=== PATIENT | female | born 1955 | race Caucasian/White ===

== ENCOUNTER → 2016-11-10 | Outpatient (CLI) | payer OTHER ==
[2016-11-10 12:50] LABS: MEAN CORPUSCULAR HEMOGLOBIN 30.8 pg (27.0-33.0); MEAN CORPUSCULAR HGB CONC 33.8 g/dl (32.0-36.5); MEAN CORPUSCULAR VOLUME 90.9 fl (80.0-96.0); RED CELL DISTRIBUTION WIDTH 14.4 % (11.5-14.5); WHITE BLOOD COUNT 6.2 K/mm3 (4.0-10.0)
--- NOTE | 2016-11-10 13:23 | REP ---
Chest x-ray: Two views. History: Shortness of breath. Findings: There is a large hiatal hernia behind the heart. The heart is mildly enlarged as well. Pulmonary vasculature is cephalized. Pleural angles are sharp. No infiltrate is seen. No bony abnormality is noted. Impression: Mild cardiomegaly. Large hiatal hernia. Pulmonary vascular cephalization. No pleural effusion or pulmonary edema seen. Signed by David York MD 11/10/2016 02:04 P
[2016-11-10 13:59] LABS: ALBUMIN 3.8 GM/DL (3.2-5.2); ALBUMIN/GLOBULIN RATIO 1.09 (1.00-1.93); BILIRUBIN,TOTAL 0.4 MG/DL (0.2-1.0); CALCIUM LEVEL 8.5 MG/DL (8.5-10.1); CREATININE FOR GFR 1.07 MG/DL (0.55-1.02); GLOMERULAR FILTRATION RATE 55.9 (>51); POTASSIUM SERUM 4.1 MEQ/L (3.5-5.1); TOTAL PROTEIN 7.3 GM/DL (6.4-8.2)
== END ==
LOC: M LAB 11:52
PROVIDERS: ATTEND Family Medicine
DX: E03.8 Other specified hypothyroidism (principal); R06.02 Shortness of breath

== ENCOUNTER → 2016-12-22 | Outpatient (CLI) | payer OTHER ==
[2016-12-22 11:32] LABS: ALBUMIN 3.6 GM/DL (3.2-5.2); ALBUMIN/GLOBULIN RATIO 1.06 (1.00-1.93); ALKALINE PHOSPHATASE 75 U/L (45-117); ALT/SGPT 40 U/L (12-78); AST/SGOT 25 U/L (15-37); BILIRUBIN,DIRECT 0.1 MG/DL (0.0-0.2); BILIRUBIN,TOTAL 0.4 MG/DL (0.2-1.0); CHOLESTEROL LEVEL 162 MG/DL (<200); TRIGLYCERIDES LEVEL 143 MG/DL (<150)
== END ==
LOC: M LAB 09:44
PROVIDERS: ATTEND Family Medicine
DX: E78.2 Mixed hyperlipidemia (principal)

== ENCOUNTER → 2017-02-01 | Outpatient (CLI) | payer OTHER | LOC: M LAB 11:21 | PROVIDERS: ATTEND Family Medicine | DX: E03.8 Other specified hypothyroidism (principal) ==

== ENCOUNTER → 2017-09-06 | Outpatient (CLI) | payer OTHER ==
[2017-09-06 10:42] LABS: ANION GAP 5 MEQ/L (8-16); BLOOD UREA NITROGEN 10 MG/DL (7-18); CARBON DIOXIDE LEVEL 28 MEQ/L (21-32); CHLORIDE LEVEL 110 MEQ/L (98-107); CREATININE FOR GFR 0.64 MG/DL (0.55-1.30); FREE T4 1.38 NG/DL (0.76-1.46); GLOMERULAR FILTRATION RATE > 60.0 (>45); GLUCOSE, FASTING 100 MG/DL (70-100); POTASSIUM SERUM 4.3 MEQ/L (3.5-5.1); SODIUM LEVEL 143 MEQ/L (136-145); THYROID STIMULATING HORMONE 0.298 uIU/ML (0.358-3.740)
[2017-09-06 15:57] LABS: ALBUMIN 3.4 GM/DL (3.2-5.2)
[2017-09-06 19:21] LABS: PTH INTACT 94.1 PG/ML (18.5-88.0)
[2017-09-06 19:24] LABS: TOTAL 25(OH) VITAMIN D 4.5 NG/ML (30.0-100.0)
[2017-09-07 08:22] LABS: HERPES ZOSTER, VARICELLA IgG <135 index (Immune >165)
== END ==
LOC: M LAB 09:51
DX: Z01.84 Encounter for antibody response examination (principal); E03.8 Other specified hypothyroidism; E83.51 Hypocalcemia; I10 Essential (primary) hypertension
CPT/HCPCS: 82040

== ENCOUNTER → 2017-10-23 | Outpatient (CLI) | payer OTHER ==
[2017-10-23 12:44] LABS: CALCIUM LEVEL 9.1 MG/DL (8.8-10.2)
[2017-10-23 12:47] LABS: TOTAL 25(OH) VITAMIN D 19.1 NG/ML (30.0-100.0)
== END ==
LOC: M LAB 11:53
DX: E55.9 Vitamin D deficiency, unspecified (principal)
CPT/HCPCS: 82310

== ENCOUNTER → 2018-04-02 | Outpatient (CLI) | payer OTHER ==
[2018-04-02 12:55] LABS: CALCIUM LEVEL 9.3 MG/DL (8.8-10.2)
[2018-04-02 13:12] LABS: TOTAL 25(OH) VITAMIN D 48.8 NG/ML (30.0-100.0)
== END ==
LOC: M LAB 11:28
PROVIDERS: ATTEND Family Medicine
DX: E55.9 Vitamin D deficiency, unspecified (principal)

== ENCOUNTER → 2018-04-18 | Outpatient (CLI) | payer OTHER ==
[2018-04-18 12:51] LABS: HEMATOCRIT 45.2 % (36.0-47.0); MEAN CORPUSCULAR HEMOGLOBIN 30.2 pg (27.0-33.0); MEAN CORPUSCULAR HGB CONC 33.2 g/dl (32.0-36.5); MEAN CORPUSCULAR VOLUME 91.1 fl (80.0-96.0); PLATELET COUNT, AUTOMATED 273 10^3/uL (150-450); RED BLOOD COUNT 4.96 10^6/uL (4.00-5.40); WHITE BLOOD COUNT 13.5 10^3/uL (4.0-10.0)
[2018-04-18 13:20] LABS: ALBUMIN 3.6 GM/DL (3.2-5.2); ALT/SGPT 28 U/L (12-78); BILIRUBIN,TOTAL 0.6 MG/DL (0.2-1.0); BLOOD UREA NITROGEN 15 MG/DL (7-18); CALCIUM LEVEL 8.6 MG/DL (8.8-10.2); CARBON DIOXIDE LEVEL 29 MEQ/L (21-32); CHLORIDE LEVEL 101 MEQ/L (98-107); CHOLESTEROL LEVEL 131 MG/DL (<200); CHOLESTEROL RISK RATIO 2.673 (<5); CPK CREATINE PHOSPHOKINASE 140 U/L (26-192); CREATININE FOR GFR 0.84 MG/DL (0.55-1.30); GLOMERULAR FILTRATION RATE > 60.0 (>45); GLUCOSE, FASTING 97 MG/DL (70-100); HDL CHOLESTEROL 49 MG/DL (>40); LDL CHOLESTEROL 59 MG/DL (<100); NON-HDL-C 82 MG/DL; POTASSIUM SERUM 3.5 MEQ/L (3.5-5.1); SODIUM LEVEL 138 MEQ/L (136-145); TOTAL PROTEIN 6.9 GM/DL (6.4-8.2); TRIGLYCERIDES LEVEL 113 MG/DL (<150)
[2018-04-18 13:21] LABS: TOTAL 25(OH) VITAMIN D 38.6 NG/ML (30.0-100.0)
== END ==
LOC: M LAB 12:20
PROVIDERS: ATTEND Family Medicine
DX: Z12.11 Encounter for screening for malignant neoplasm of colon (principal); I10 Essential (primary) hypertension; E78.2 Mixed hyperlipidemia; E55.9 Vitamin D deficiency, unspecified

== ENCOUNTER → 2019-04-03 | Outpatient (CLI) | payer OTHER ==
[2019-04-03 11:18] LABS: HEMATOCRIT 44.1 % (36.0-47.0); HEMOGLOBIN 14.3 g/dl (12.0-15.5); MEAN CORPUSCULAR HGB CONC 32.4 g/dl (32.0-36.5); MEAN CORPUSCULAR VOLUME 92.5 fl (80.0-96.0); PLATELET COUNT, AUTOMATED 272 10^3/uL (150-450); RED BLOOD COUNT 4.77 10^6/uL (4.00-5.40); WHITE BLOOD COUNT 8.7 10^3/uL (4.0-10.0)
[2019-04-03 11:52] LABS: ALBUMIN 3.5 GM/DL (3.2-5.2); ALT/SGPT 32 U/L (12-78); BILIRUBIN,TOTAL 0.5 MG/DL (0.2-1.0); BLOOD UREA NITROGEN 23 MG/DL (7-18); CALCIUM LEVEL 8.8 MG/DL (8.8-10.2); CARBON DIOXIDE LEVEL 30 MEQ/L (21-32); CHLORIDE LEVEL 102 MEQ/L (98-107); CHOLESTEROL LEVEL 147 MG/DL (<200); CPK CREATINE PHOSPHOKINASE 144 U/L (26-192); CREATININE FOR GFR 0.88 MG/DL (0.55-1.30); GLOMERULAR FILTRATION RATE > 60.0 (>45); GLUCOSE, FASTING 95 MG/DL (70-100); HDL CHOLESTEROL 42 MG/DL (>40); LDL CHOLESTEROL 86 MG/DL (<100); NON-HDL-C 105 MG/DL; POTASSIUM SERUM 3.3 MEQ/L (3.5-5.1); SODIUM LEVEL 139 MEQ/L (136-145); TOTAL PROTEIN 6.8 GM/DL (6.4-8.2); TRIGLYCERIDES LEVEL 97 MG/DL (<150)
[2019-04-03 11:53] LABS: TOTAL 25(OH) VITAMIN D 45.5 NG/ML (30.0-100.0)
== END ==
LOC: M LAB 10:45
PROVIDERS: ATTEND Family Medicine
DX: I10 Essential (primary) hypertension (principal); E78.2 Mixed hyperlipidemia; E55.9 Vitamin D deficiency, unspecified; E03.8 Other specified hypothyroidism

== ENCOUNTER → 2019-06-10 | Outpatient (CLI) | payer OTHER ==
[2019-06-10 10:27] LABS: BLOOD UREA NITROGEN 23 MG/DL (7-18); CALCIUM LEVEL 8.7 MG/DL (8.8-10.2); CARBON DIOXIDE LEVEL 31 MEQ/L (21-32); CHLORIDE LEVEL 103 MEQ/L (98-107); CREATININE FOR GFR 0.96 MG/DL (0.55-1.30); GLOMERULAR FILTRATION RATE > 60.0 (>45); GLUCOSE, FASTING 100 MG/DL (70-100); POTASSIUM SERUM 3.2 MEQ/L (3.5-5.1); SODIUM LEVEL 141 MEQ/L (136-145)
== END ==
LOC: M LAB 09:15
PROVIDERS: ATTEND Family Medicine
DX: E87.6 Hypokalemia (principal)

== ENCOUNTER 2019-11-08 10:46 | Inpatient (IN) | payer OTHER ==
[~2019-11-08] VITALS: Ht 167.6 cm; Wt 101.6 kg
[2019-11-08] MEDS ORDERED: NS 1,000 ML IV ONE ×3 (11:15→14:15)
[2019-11-08] MEDS ORDERED: PANTOPRAZOLE 40MG VIAL (C9113 PER 1) IV ONE (11:15)
[2019-11-08] MEDS ORDERED: METOCLOPRAMIDE INJ 10MG/2ML VIAL (J2765 PER 1) IV ONE (11:15)
--- NOTE | 2019-11-08 12:03 | REPVR ---
PROCEDURE INFORMATION: Exam: XR Chest, 1 View Exam date and time: 11/08/2019 11:39 AM Age: 64 years old Clinical indication: Pain; Other: Abdominal; Additional info: Cp/abd pain TECHNIQUE: Imaging protocol: XR of the chest Views: 1 view. COMPARISON: CR Chest, 2 view PA, Lat 11/10/2016 12:15 PM FINDINGS: Lungs: There is left base atelectasis. Pleural space: Unremarkable. No pleural effusion. No pneumothorax. Heart/Mediastinum: The heart is slightly enlarged. Bones/joints: Unremarkable. Soft tissues: There is enlargement of the paraesophageal hernia extending into left lower chest. IMPRESSION: Increase in size what appears to be a paraesophageal hernia. There is associated atelectasis . Electronically signed by: Karlos Hamilton On 11/08/2019 12:04:11 PM
[2019-11-08 12:06] LABS: BASO % 0.1 % (0.0-1.0); HEMATOCRIT 50.4 % (36.0-47.0); HEMOGLOBIN 17.6 g/dl (12.0-15.5); LYMPH % 9.5 % (24.0-44.0); MEAN CORPUSCULAR HEMOGLOBIN 30.1 pg (27.0-33.0); MEAN CORPUSCULAR HGB CONC 34.9 g/dl (32.0-36.5); MEAN CORPUSCULAR VOLUME 86.3 fl (80.0-96.0); MONO # 1.3 10^3/uL (0.0-0.8); MONO % 6.3 % (0.0-5.0); NEUTROPHILS # 17.2 10^3/uL (1.5-8.5); NEUTROPHILS % 83.6 % (36.0-66.0); PLATELET COUNT, AUTOMATED 392 10^3/uL (150-450); RED BLOOD COUNT 5.84 10^6/uL (4.00-5.40); WHITE BLOOD COUNT 20.5 10^3/uL (4.0-10.0)
[2019-11-08 12:15] LABS: INR 0.91; PROTHROMBIN TIME 12.4 SECONDS (11.8-14.0)
[2019-11-08 12:37] LABS: ALBUMIN 4.4 GM/DL (3.2-5.2); BILIRUBIN,DIRECT 0.3 MG/DL (0.0-0.2); CK-MB VALUE MASS 2.2 NG/ML (<3.6); MB/CK RELATIVE INDEX 0.58 (< OR =4); TOTAL PROTEIN 8.5 GM/DL (6.4-8.2); TROPONIN I 0.06 NG/ML (< 0.10)
[2019-11-08 14:18] LABS: CALCIUM LEVEL 10.5 MG/DL (8.8-10.2); CREATININE FOR GFR 1.69 MG/DL (0.55-1.30); GLOMERULAR FILTRATION RATE 32.6 (>45); POTASSIUM SERUM 2.8 MEQ/L (3.5-5.1)
[2019-11-08] MEDS ORDERED: KCL 10MEQ/100ML SWI (KRUN) 10 MEQ in IV 1 EA IV ONE (14:30)
--- NOTE | 2019-11-08 15:04 | REPVR ---
PROCEDURE INFORMATION: Exam: CT Chest Without Contrast Exam date and time: 11/08/2019 2:26 PM Age: 64 years old Clinical indication: Pain; Other: Epigastric; Additional info: Abd pain TECHNIQUE: Imaging protocol: Computed tomography of the chest without contrast. Radiation optimization: All CT scans at this facility use at least one of these dose optimization techniques: automated exposure control; mA and/or kV adjustment per patient size (includes targeted exams where dose is matched to clinical indication); or iterative reconstruction. COMPARISON: CR Chest, 1 view 11/08/2019 11:37 AM FINDINGS: Lungs: Unremarkable. No consolidation. No masses. Pleural space: There is biapical pleural thickening. Heart: There is severe calcifications mitral valve. Mediastinal space: There is a fluid-filled esophagus with a large paraesophageal hernia. Fluid-filled esophagus could to reflux. There may be wall thickening in the mid esophagus specifically on images 201/12 through 26. Aorta: Unremarkable. No aortic aneurysm. Lymph nodes: Unremarkable. No enlarged lymph nodes. Bones/joints: Unremarkable. No acute fracture. Soft tissues: Unremarkable. Other findings: The abdomen discussed in separate dictation. There are diffuse vascular calcifications. IMPRESSION: 1. Large paraesophageal hernia. 2. Possible mid esophageal wall thickening. 3. Bibasilar atelectasis. Electronically signed by: Karlos Hamilton On 11/08/2019 15:04:53 PM
--- NOTE | 2019-11-08 15:06 | REPVR ---
PROCEDURE INFORMATION: Exam: CT Abdomen And Pelvis Without Contrast Exam date and time: 11/08/2019 2:26 PM Age: 64 years old Clinical indication: Abdominal pain; Epigastric; Additional info: Abd pain TECHNIQUE: Imaging protocol: Computed tomography of the abdomen and pelvis without contrast. Radiation optimization: All CT scans at this facility use at least one of these dose optimization techniques: automated exposure control; mA and/or kV adjustment per patient size (includes targeted exams where dose is matched to clinical indication); or iterative reconstruction. COMPARISON: No relevant prior studies available. FINDINGS: Mediastinal space: Paraesophageal hernia was discussed on the chest CT. Liver: Liver is very fatty enlarged 191 mm. There are areas of focal fatty sparing throughout the periphery of the liver. Gallbladder and bile ducts: Normal. No calcified stones. No ductal dilation. Pancreas: Normal. No ductal dilation. Spleen: Normal. No splenomegaly. Adrenals: Normal. No mass. Kidneys and ureters: Normal. No hydronephrosis. Stomach and bowel: There are few scattered colonic diverticula without evidence of acute diverticulitis. Small amount oral contrast is noted in small bowel loops versus sequelae of ingested medicines. Appendix: The appendix is unremarkable in is seen. Intraperitoneal space: Unremarkable. No free air. No significant fluid collection. Vasculature: Unremarkable. No abdominal aortic aneurysm. Lymph nodes: Unremarkable. No enlarged lymph nodes. Bladder: Unremarkable as visualized. Reproductive: Unremarkable as visualized. Bones/joints: Unremarkable. No acute fracture. Soft tissues: Unremarkable. Other findings: The chest was discussed on a separate dictation. IMPRESSION: No acute abnormality. Large fatty liver. Electronically signed by: Karlos Hamilton On 11/08/2019 15:07:20 PM
[2019-11-08] MEDS ORDERED: SIMV40TA20 PO (15:25)
[2019-11-08] MEDS ORDERED: ALBU8.5H PO (15:25)
[2019-11-08] MEDS ORDERED: POTA20TA6 PO (15:25)
[2019-11-08] MEDS ORDERED: VITA50005 PO (15:25)
[2019-11-08] MEDS ORDERED: EUTH100T PO (15:25)
[2019-11-08] MEDS ORDERED: FLUO20CA22 PO (15:25)
[2019-11-08] MEDS ORDERED: ONDA-83 PO (15:25)
[2019-11-08] MEDS ORDERED: OMEP-218 PO (15:25)
[2019-11-08] MEDS ORDERED: METO1TAB7 PO (15:25)
[2019-11-08] MEDS ORDERED: CHLO125TA PO (15:25)
[2019-11-08] MEDS ORDERED: GASTROGRAFIN SOLUTION 30ML (Q9963) As Ordered ONE (16:01)
[2019-11-08] MEDS ORDERED: PIPERACILLIN/TAZOBACTAM SOD 3.375 GM in D5W MINI-BAG PLUS 50 ML IV SCH (18:00)
[2019-11-08] MEDS ORDERED: BUPIVACAINE HCL 0.25% 30ML VIAL As Ordered ONE ×2 (19:33→20:10)
[2019-11-08] MEDS ORDERED: MIDAZOLAM INJ 2MG/2ML VIAL (J2250 PER 1MG) As Ordered ONE (19:49)
[2019-11-08] MEDS ORDERED: ONDANSETRON 4MG/2ML VIAL As Ordered ONE (19:49)
[2019-11-08] MEDS ORDERED: dexameTHASONE 4 MG/ML 1ML VIAL (J1100 PER 1MG) As Ordered ONE (19:49)
[2019-11-08] MEDS ORDERED: LIDOCAINE 2% 100MG/5ML SDV (FOR ANES.) As Ordered ONE (19:49)
[2019-11-08] MEDS ORDERED: PHENYLephrine HCL 500 MCG/5 ML (100MCG/ML) SYRINGE (J2370) As Ordered ONE ×2 (19:49→19:58)
[2019-11-08] MEDS ORDERED: ROCURONIUM BROMIDE 50 MG/5 ML VIAL As Ordered ONE ×3 (19:49→22:40)
[2019-11-08] MEDS ORDERED: SUCCINYLCHOLINE 100 MG/5 ML SYRINGE (J0330) As Ordered ONE (19:49)
[2019-11-08] MEDS ORDERED: fentaNYL 250 MCG/5 ML INJECTION (J3010) As Ordered ONE (19:49)
[2019-11-08] MEDS ORDERED: ePHEDrine SULFATE 25 MG/5 ML(5MG/ML) SYRINGE As Ordered ONE (19:52)
[2019-11-08] MEDS ORDERED: propofoL 200 MG/20 ML VIAL As Ordered ONE (19:57)
[2019-11-08] MEDS ORDERED: SUGAMMADEX SODIUM 500 MG/5 ML VIAL (BRIDION) As Ordered ONE (20:42)
[2019-11-08] MEDS ORDERED: HYDROmorphone HCL 2 MG/ML 1ML VIAL (J1170) As Ordered ONE (21:52)
[2019-11-08] MEDS ORDERED: ACETAMINOPHEN 1000MG 100ML IV BTL (OFIRMEV) (J0131 PER 10MG) As Ordered ONE (22:01)
[2019-11-09] VITALS (8 sets, daily range): BP systolic 102–140; BP diastolic 54–72
[2019-11-09] MEDS ORDERED: MORPHINE 2 MG/ML 1ML VIAL (J2270) IV PRN (02:15)
[2019-11-09] MEDS ORDERED: ONDANSETRON 4MG/2ML VIAL IV PRN ×2 (02:15→02:30)
[2019-11-09] MEDS ORDERED: PIPERACILLIN/TAZOBACTAM SOD 3.375 GM in D5W MINI-BAG PLUS 50 ML IV ONE (02:15)
[2019-11-09] MEDS ORDERED: fentaNYL 100 MCG/2 ML INJECTION (J3010) IV PRN (02:30)
[2019-11-09] MEDS ORDERED: oxyCODONE 5MG TAB PO PRN (02:30)
[2019-11-09 02:56] LABS: BASO % 0.1 % (0.0-1.0); HEMATOCRIT 38.8 % (36.0-47.0); LYMPH # 1.1 10^3/uL (1.5-5.0); LYMPH % 6.9 % (24.0-44.0); MEAN CORPUSCULAR HGB CONC 33.8 g/dl (32.0-36.5); MEAN CORPUSCULAR VOLUME 91.7 fl (80.0-96.0); MONO # 1.4 10^3/uL (0.0-0.8); MONO % 8.4 % (0.0-5.0); NEUTROPHILS # 13.7 10^3/uL (1.5-8.5); NEUTROPHILS % 84.2 % (36.0-66.0); RED BLOOD COUNT 4.23 10^6/uL (4.00-5.40); WHITE BLOOD COUNT 16.3 10^3/uL (4.0-10.0)
[2019-11-09 03:02] LABS: HEMOGLOBIN 13.1 g/dl (12.0-15.5); PLATELET COUNT, AUTOMATED 221 10^3/uL (150-450)
[2019-11-09 03:30] LABS: CALCIUM LEVEL 7.6 MG/DL (8.8-10.2); CREATININE FOR GFR 1.22 MG/DL (0.55-1.30); GLOMERULAR FILTRATION RATE 47.5 (>45); POTASSIUM SERUM 2.7 MEQ/L (3.5-5.1)
--- NOTE | 2019-11-09 03:31 | REPVR ---
PROCEDURE INFORMATION: Exam: XR Chest, 1 View Exam date and time: 11/09/2019 2:47 AM Age: 64 years old Clinical indication: Screening exam; Other screening; Additional info: S/P surgery TECHNIQUE: Imaging protocol: XR of the chest Views: 1 view. COMPARISON: CT Chest without contrast 2019-11-08 14:23 FINDINGS: Tubes, catheters and devices: Oral gastric tube tip and sidehole are within the stomach. Lungs: Left lung base atelectasis or infiltrate. Pleural space: Unremarkable. No pleural effusion. No pneumothorax. Heart/Mediastinum: Moderate hiatal hernia. Bones/joints: Unremarkable. IMPRESSION: Moderate hiatal hernia. Left lung base atelectasis or infiltrate. Electronically signed by: John Macias On 11/09/2019 03:32:10 AM
[2019-11-09] MEDS: KETOROLAC 30 MG/ML 1ML VIAL IV SCH ×2 (03:54→09:35)
[2019-11-09] MEDS: LR 1,000 ML IV SCH ×2 (03:57→11:28)
[2019-11-09] MEDS: KCL 10MEQ/100ML SWI (KRUN) 10 MEQ in IV 1 EA IV SCH ×4 (04:04→07:15)
[2019-11-09] MEDS: LEVOTHYROXINE 100MCG (0.1MG) VIAL IV SCH (09:34)
[2019-11-09] MEDS: PANTOPRAZOLE 40MG VIAL (C9113 PER 1) IV SCH (09:34)
[2019-11-09 16:07] LABS: HEMATOCRIT 37.1 % (36.0-47.0); HEMOGLOBIN 11.8 g/dl (12.0-15.5); MEAN CORPUSCULAR HEMOGLOBIN 29.8 pg (27.0-33.0); MEAN CORPUSCULAR HGB CONC 31.8 g/dl (32.0-36.5); MEAN CORPUSCULAR VOLUME 93.7 fl (80.0-96.0); PLATELET COUNT, AUTOMATED 179 10^3/uL (150-450); RED BLOOD COUNT 3.96 10^6/uL (4.00-5.40); WHITE BLOOD COUNT 14.5 10^3/uL (4.0-10.0)
[2019-11-09] MEDS: KETOROLAC 30 MG/ML 1ML VIAL IV PRN ×2 (16:12→22:01)
[2019-11-09 20:09] LABS: ALBUMIN 2.4 GM/DL (3.2-5.2); ALT/SGPT 89 U/L (12-78); BILIRUBIN,TOTAL 0.7 MG/DL (0.2-1.0); BLOOD UREA NITROGEN 30 MG/DL (7-18); CALCIUM LEVEL 7.3 MG/DL (8.8-10.2); CARBON DIOXIDE LEVEL 33 MEQ/L (21-32); CHLORIDE LEVEL 106 MEQ/L (98-107); CREATININE FOR GFR 0.85 MG/DL (0.55-1.30); GLOMERULAR FILTRATION RATE > 60.0 (>45); GLUCOSE, FASTING 86 MG/DL (70-100); POTASSIUM SERUM 2.8 MEQ/L (3.5-5.1); SODIUM LEVEL 142 MEQ/L (136-145); TOTAL PROTEIN 4.6 GM/DL (6.4-8.2)
[2019-11-09] MEDS: POTASSIUM CHLORIDE INJ 40 MEQ in LR 1,000 ML IV SCH (21:58)
[2019-11-10] VITALS: BP 132/63
[2019-11-10] MEDS: KETOROLAC 30 MG/ML 1ML VIAL IV PRN ×4 (03:39→21:44)
[2019-11-10 04:00] VITALS: BP 104/53
[2019-11-10 08:00] VITALS: BP 126/61
[2019-11-10] MEDS: LEVOTHYROXINE 100MCG (0.1MG) VIAL IV SCH (08:11)
[2019-11-10] MEDS: POTASSIUM CHLORIDE INJ 40 MEQ in LR 1,000 ML IV SCH ×2 (08:11→21:43)
[2019-11-10] MEDS: PANTOPRAZOLE 40MG VIAL (C9113 PER 1) IV SCH (08:11)
[2019-11-10 10:19] LABS: BLOOD UREA NITROGEN 24 MG/DL (7-18); CALCIUM LEVEL 7.7 MG/DL (8.8-10.2); CARBON DIOXIDE LEVEL 32 MEQ/L (21-32); CHLORIDE LEVEL 106 MEQ/L (98-107); CREATININE FOR GFR 0.71 MG/DL (0.55-1.30); GLOMERULAR FILTRATION RATE > 60.0 (>45); GLUCOSE, FASTING 79 MG/DL (70-100); POTASSIUM SERUM 3.2 MEQ/L (3.5-5.1); SODIUM LEVEL 145 MEQ/L (136-145)
[2019-11-10 12:00] VITALS: BP 129/61
[2019-11-10] MEDS: KCL 10MEQ/100ML SWI (KRUN) 10 MEQ in IV 1 EA IV SCH ×4 (12:32→17:00)
[2019-11-10] MEDS: ENOXAPARIN 40MG/0.4ML SYRINGE (J1650 PER 10MG) SC SCH (12:37)
[2019-11-10 16:00] VITALS: BP 124/60
[2019-11-10 20:00] VITALS: BP 125/60
[2019-11-11] VITALS (7 sets, daily range): BP systolic 135–170; BP diastolic 65–92
[2019-11-11] MEDS: KETOROLAC 30 MG/ML 1ML VIAL IV PRN ×3 (04:12→20:09)
[2019-11-11 05:02] LABS: BASO % 0.5 % (0.0-1.0); EOS # 0.2 10^3/uL (0.0-0.5); HEMATOCRIT 33.1 % (36.0-47.0); HEMOGLOBIN 10.8 g/dl (12.0-15.5); LYMPH % 24.8 % (24.0-44.0); MEAN CORPUSCULAR HEMOGLOBIN 30.3 pg (27.0-33.0); MEAN CORPUSCULAR HGB CONC 32.6 g/dl (32.0-36.5); MEAN CORPUSCULAR VOLUME 92.7 fl (80.0-96.0); MONO # 0.8 10^3/uL (0.0-0.8); MONO % 9.4 % (0.0-5.0); NEUTROPHILS # 4.9 10^3/uL (1.5-8.5); NEUTROPHILS % 61.8 % (36.0-66.0); PLATELET COUNT, AUTOMATED 165 10^3/uL (150-450); RED BLOOD COUNT 3.57 10^6/uL (4.00-5.40)
[2019-11-11 05:54] LABS: ALBUMIN 2.3 GM/DL (3.2-5.2); ALT/SGPT 56 U/L (12-78); BILIRUBIN,TOTAL 0.6 MG/DL (0.2-1.0); BLOOD UREA NITROGEN 17 MG/DL (7-18); CALCIUM LEVEL 7.7 MG/DL (8.8-10.2); CARBON DIOXIDE LEVEL 31 MEQ/L (21-32); CHLORIDE LEVEL 106 MEQ/L (98-107); CREATININE FOR GFR 0.59 MG/DL (0.55-1.30); GLOMERULAR FILTRATION RATE > 60.0 (>45); GLUCOSE, FASTING 82 MG/DL (70-100); POTASSIUM SERUM 3.3 MEQ/L (3.5-5.1); SODIUM LEVEL 140 MEQ/L (136-145); TOTAL PROTEIN 5.2 GM/DL (6.4-8.2)
[2019-11-11] MEDS: PANTOPRAZOLE 40MG VIAL (C9113 PER 1) IV SCH (08:38)
[2019-11-11] MEDS: FLUoxetine 20 MG CAP PO SCH (08:38)
[2019-11-11] MEDS: ENOXAPARIN 40MG/0.4ML SYRINGE (J1650 PER 10MG) SC SCH (08:38)
[2019-11-11] MEDS: LEVOTHYROXINE 100MCG TABLET (0.1MG) PO SCH (08:38)
[2019-11-11] MEDS: CHLORTHALIDONE 25 MG TAB PO SCH (10:43)
[2019-11-11] MEDS: POTASSIUM CHLORIDE 10 MEQ SR TABLET PO SCH ×3 (17:26→23:26)
[2019-11-11] MEDS ORDERED: NORCO, ANEXSIA 5/325MG TABLET (HYDROcodone/ACETAMINOPHEN) PO PRN (23:30)
[2019-11-11] MEDS ORDERED: ACETAMINOPHEN TAB 650MG DOSE (2X325MG) PO PRN (23:30)
[2019-11-12 02:00] VITALS: BP_SYST 148; BP_SYST 169; BP_DIAS 62; BP_DIAS 83
[2019-11-12] MEDS: LEVOTHYROXINE 100MCG TABLET (0.1MG) PO SCH (05:37)
[2019-11-12 06:00] VITALS: BP 169/83
[2019-11-12] MEDS: PANTOPRAZOLE 40MG VIAL (C9113 PER 1) IV SCH (09:53)
[2019-11-12] MEDS: FLUoxetine 20 MG CAP PO SCH (09:53)
[2019-11-12] MEDS: ENOXAPARIN 40MG/0.4ML SYRINGE (J1650 PER 10MG) SC SCH (09:53)
[2019-11-12 10:00] VITALS: BP 140/70
[2019-11-12] MEDS: CHLORTHALIDONE 25 MG TAB PO SCH (10:11)
[2019-11-12 10:12] LABS: BASO % 0.4 % (0.0-1.0); EOS # 0.4 10^3/uL (0.0-0.5); EOS % 4.5 % (0.0-3.0); HEMATOCRIT 36.7 % (36.0-47.0); LYMPH # 1.5 10^3/uL (1.5-5.0); LYMPH % 19.6 % (24.0-44.0); MEAN CORPUSCULAR HGB CONC 32.7 g/dl (32.0-36.5); MEAN CORPUSCULAR VOLUME 91.8 fl (80.0-96.0); MONO # 0.8 10^3/uL (0.0-0.8); MONO % 10.6 % (0.0-5.0); NEUTROPHILS % 64.4 % (36.0-66.0); PLATELET COUNT, AUTOMATED 206 10^3/uL (150-450); WHITE BLOOD COUNT 7.8 10^3/uL (4.0-10.0)
[2019-11-12 10:58] LABS: BLOOD UREA NITROGEN 9 MG/DL (7-18); CALCIUM LEVEL 7.8 MG/DL (8.8-10.2); CARBON DIOXIDE LEVEL 30 MEQ/L (21-32); CHLORIDE LEVEL 104 MEQ/L (98-107); CREATININE FOR GFR 0.64 MG/DL (0.55-1.30); GLOMERULAR FILTRATION RATE > 60.0 (>45); GLUCOSE, FASTING 87 MG/DL (70-100); POTASSIUM SERUM 3.9 MEQ/L (3.5-5.1); SODIUM LEVEL 140 MEQ/L (136-145)
[2019-11-12 14:00] VITALS: BP 120/66
[2019-11-12 18:00] VITALS: BP 124/68
[2019-11-12 22:00] VITALS: BP 132/76
[2019-11-13 02:00] VITALS: BP 139/84
[2019-11-13] MEDS: LEVOTHYROXINE 100MCG TABLET (0.1MG) PO SCH (05:41)
[2019-11-13 06:00] VITALS: BP 150/78
[2019-11-13] MEDS: CHLORTHALIDONE 25 MG TAB PO SCH (10:11)
[2019-11-13] MEDS: FLUoxetine 20 MG CAP PO SCH (10:11)
[2019-11-13] MEDS: ENOXAPARIN 40MG/0.4ML SYRINGE (J1650 PER 10MG) SC SCH (10:13)
[2019-11-13] MEDS: PANTOPRAZOLE 40MG VIAL (C9113 PER 1) IV SCH (10:13)
--- NOTE | 2019-12-03 13:53 | ECGEPIP ---
[facility] - ED Test Date: 2019-11-08 Pat Name: JANES BEDOLLA Department: Room: - Gender: Female Manager Photography: AMELIA : 1955 Requested By: Shanti Low Order Number: [id number] Reading MD: Shanti Low Measurements Intervals Melbeta Rate: 100 P: 53 IN: 169 QRS: 102 QRSD: 150 T: 6 QT: 424 QTc: 547 Interpretive Statements SINUS TACHYCARDIA POSSIBLE LEFT ATRIAL ENLARGEMENT MARKED RIGHT AXIS DEVIATION RIGHT BUNDLE BRANCH BLOCK ST DEPRESSION, CONSIDER SUBENDOCARDIAL INJURY ABNORMAL ECG SEE SCANNED DOWNTIME REPORT
--- NOTE | 2019-12-13 13:35 | REP ---
CHEST X-RAY: PA AND LATERAL VIEWS HISTORY: Follow up pneumomediastinum. COMPARISON: 11/09/19 TECHNIQUE: PA and lateral FINDINGS: Bibasilar opacities (left greater than right) suggest small to moderate pleural effusions and bibasilar atelectasis. Subtle scattered air space disease is also suggested. No obvious pneumoperitoneum. No pneumothorax. Skeletal structures are intact. IMPRESSION: Moderate left and small right pleural effusions with associated bibasilar atelectasis. MTDD
--- NOTE | 2019-12-13 13:37 | REP ---
GASTROGRAFIN ESOPHAGRAM The procedure was performed under the direct supervision of Dr. York. The images were reviewed with Dr. York. A 50/50 solution of Gastrografin and water was administered. The esophagus empties into the stomach within the hernia without delay. There is no esophageal obstruction. There is no evidence of extravasation. There is gastric fluid distention. Some contrast is seen emptying through the pylorus and into the duodenum. There is no complete gastric obstruction. There is gastroesophageal reflux demonstrated to above the level of the catherine. IMPRESSION: There is no evidence of esophageal obstruction. There is gastric fluid distention. There is contrast seen through the pylorus into the duodenum. There is no evidence of complete gastric obstruction. There is gastroesophageal reflux demonstrated to above the level of the catherine. 1 minute of fluoroscopy time was utilized for this procedure. [facility]
--- NOTE | 2019-12-23 11:37 | HPE ---
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 HISTORY OF PRESENT ILLNESS: The patient is a 64-year-old woman who reports that she has had some on and off epigastric discomfort with some occasional nausea and vomiting for years. Over the last 48 hours, she developed initially some emesis, which became repeated and changed from old food material to some coffee-ground type emesis. She has been unable to eat or drink during this period of time. She did have a bowel movement yesterday that for her was fairly normal. She had discomfort in the epigastrium. She presented to the emergency department at approximately 11 o'clock in the morning on November 07. She was found to have an elevated white blood cell count with hemoconcentration and an elevated lactic acid. She underwent evaluation with a CT scan of the chest, abdomen, and pelvis. She was found to have a large paraesophageal hernia with much of her stomach within the chest. She received several boluses of intravenous (IV) fluid. Subsequently, a contrast swallow was performed that did show some flow of contrast down the esophagus into a portion of the stomach. I was consulted. The patient's imaging and history are felt to be consistent with a volvulus of the stomach within her paraesophageal hernia. A nasogastric tube was placed, and she is now for urgent surgery. ALLERGIES: Patient denies any drug allergies. MEDICATIONS: - chlorthalidone 25 mg by mouth daily - fluoxetine 20 mg by mouth daily - levothyroxine 100 mcg by mouth every morning - metoprolol succinate ER 50 mg by mouth every night - omeprazole 20 mg by mouth twice a day - potassium chloride 20 mEq twice daily - simvastatin 40 mg by mouth daily - albuterol inhaler on an as-needed basis - vitamin D 50,000 units monthly - Zofran on an as-needed basis. MEDICAL HISTORY: Patient's primary physician is Dr. Kelly in [place]. She has a history of hypertension. She has hypothyroidism. She has her history of upper gastrointestinal (GI) complaints. She reports that she has never had an upper endoscopy. She has a known heart murmur and reportedly had an echocardiogram at some point and was told that the murmur was of no concern by the patient report. I have no record of this. She is a smoker who smokes approximately five cigarettes per day and reports that she formally smoked much more. SURGICAL HISTORY: Significant only for a hysterectomy with bilateral salpingo- oophorectomy through a low transverse incision at age 32. FAMILY HISTORY: Noncontributory. SOCIAL HISTORY: Patient lives with her daughter, who is employed at [employer] in the progressive care unit (PCU). She does smoke but denies any alcohol intake. PHYSICAL EXAMINATION: Patient appears consistent with her stated age of 64 years. She is lying in the hospital stretcher propped up with a pillow. She is alert and oriented. She has a small-bore nasogastric tube in the left naris, which is draining a small amount of light reddish-brown fluid with some coffee- ground type material. The skin is warm and dry. Sclerae are anicteric. Mucous membranes are moist. The neck is supple without mass or bruit. Heart exam shows a regular rhythm at about 80-85. She has a fairly loud, I would say 2-3 out of 6, murmur, which is at about the left sternal border. The lungs are clear to auscultation bilaterally. The abdomen is somewhat obese but not distended. She has bowel sounds present. There is no tympany or tenderness to percussion. She has no evident hernia. Palpation reveals no significant abdominal tenderness, and there is no mass appreciated. Lower extremities show no edema. She has palpable posterior tibial pulses bilaterally and also palpable radial pulses. LABORATORY STUDIES: Include a CBC showing a white count of 20,000 with a hemoglobin of 18, hematocrit 50, and a platelet count of 392,000. Differential count shows 84% neutrophils, 10% lymphocytes, and 10% monocytes. Chemistry profile shows a sodium 137, potassium 2.8, chloride 93, CO2 of 29, BUN of 35, creatinine 1.7, and a glucose of 170. Her lactic acid was 5.6. Calcium is 10.5. Total bilirubin is normal, and her AST is minimally elevated at 45. Her CK is up to 380, which is elevated, but her troponin and CK-MB are not significantly elevated. She has a lipase of 62. PT and INR are normal. IMAGING: Included her CT scan of chest, abdomen, and pelvis. She also had a plain chest x-ray. Her chest x-ray was compared to a prior study of October 2016, and the radiologist reported an apparent increase in what appeared to be a paraesophageal hernia with some atelectasis. The CT scan images I reviewed personally. She does have a large hiatal hernia that appears to be paraesophageal. The fundus of the stomach is flipped up into the chest, and there is some degree of obstruction at the mid stomach, as part of the distal stomach is also within the chest. The proximal stomach is quite distended. There was some fluid within the esophagus on the original studies. She had a contrast swallow, which showed contrast going down the esophagus and apparently entering into the cardia of the stomach but then showing no progression distally. An nasogastric (NG) tube was placed after this. IMPRESSION: 1. Gastric volvulus, acute, with obstruction and possible ischemia. 2. Hypertension. 3. Hypothyroidism. 4. Nicotine addiction. 5. Marked dehydration with acute kidney injury. PLAN: Patient was counseled that she appears to have a volvulus of her stomach associated with her hiatal hernia. She has been vomiting coffee-ground type material, suggesting possible ischemic changes of the lining of her stomach. I have recommended that we proceed to the operating room (OR) for laparoscopy with robotic-assisted reduction and repair of her hiatal hernia. I have advised her that in the event that some of her stomach is found to be ischemic or infarcted, that resection would be appropriate, and I would likely convert to an open procedure. I advised her that an upper endoscopy may also be performed. A gastrostomy tube may be placed. She will be started on some Zosyn for antibiotic coverage. She has received 3 liters of fluid, and her fluid infusion continues. The patient was counseled regarding the risks of surgery, which include, but are not limited to, bleeding, infection, scarring, adverse drug reaction, need for further surgery, injury of internal organ, recurrence of her hiatal hernia, and development of a hernia through one of her incisions. She had an opportunity to ask questions and desires to proceed with the surgery as I have outlined it. MERLIN
--- NOTE | 2019-12-26 11:03 | RO ---
DATE OF OPERATION: 11/08/2019 (into the community nurse hours of 11/09/2019) PREOPERATIVE DIAGNOSIS: Incarcerated paraesophageal hiatal hernia with gastric volvulus with obstruction and possible ischemia. POSTOPERATIVE DIAGNOSES: * Incarcerated paraesophageal hiatal hernia with gastric volvulus with obstruction. * Adhesions. PROCEDURE PERFORMED: Robotic-assisted laparoscopic repair of incarcerated paraesophageal hiatal hernia with release of gastric volvulus, lysis of adhesions, gastropexy, and flexible fiberoptic upper endoscopy. SURGEON: Ruddy Barrientos MD ANESTHESIA: General. INDICATIONS FOR THE PROCEDURE: The patient is a 64-year-old woman who presented to the emergency department with a two-day history of some upper abdominal discomfort with recurrent nausea and vomiting, and inability to tolerate any oral intake. She was found to be hemoconcentrated with some acute renal failure presumed secondary to dehydration. A CT scan revealed a large paraesophageal hiatal hernia containing much of the stomach with a rotational component. Her lactic acid was elevated on presentation worrisome for ischemia. She is now for robotic-assisted laparoscopic repair of her hernia. OPERATIVE PROCEDURE: The patient was brought to the operating room and placed on the table in a supine position. She had had an NG tube placed in the emergency department. She was placed under general endotracheal anesthesia. TEDs and sequentials were utilized. Núñez catheter was placed. The patient's abdomen was prepped and draped in a sterile fashion. 0.25% Marcaine was infiltrated at each of the trocar sites as needed. Initial entry to the abdomen was several centimeters above the umbilicus and slightly to the left of the midline. A short transverse incision was made and a Veress needle was inserted. After a positive hanging drop test, the abdomen was inflated with carbon dioxide gas. An 8 mm robotic port was placed over a 5 mm scope and advanced through the abdominal wall without difficulty. Initial inspection showed some adhesions in the left upper quadrant of omentum to the anterior abdominal wall. The area of the esophageal hiatus was obscured by omentum. A 12 mm port was placed in the left upper quadrant lateral to the initial port and slightly higher. An 8 mm port was placed laterally in the left upper quadrant. Another 8 mm port was placed approximately 10 cm to the right of the initial port to the right of the midline. A 5 mm speech correction assistant port was placed in the right upper quadrant fairly far laterally. The patient was tilted to approximately 15 degrees of head-up position and rolled slightly to the right. The [facility] patient cart was brought into position and docked to the endoscope port, which was the initially placed port. Targeting took place in the left upper quadrant and the additional robotic ports were docked. A Force bipolar was inserted in the right-sided 8 mm port. Cauterizing scissors and a grasped retractor were placed in the left upper quadrant. A flexible liver retractor was placed through the speech correction assistant port and used to elevate the left lobe of the liver. This was subsequently attached to a Bookwalter retractor post with a flexible arm to maintain position. I moved to the control console to proceed with the surgery. The scissors were used to take down the adhesions at the omentum in the left upper quadrant. The spleen was identified superior to these adhesions. Inspection showed a dilated esophageal hiatus with a large amount of omentum extending through this opening. Traction was placed on the omentum and the underlying stomach. This was gradually withdrawn into the abdomen. There were, however, some significant adhesions of the omentum and the stomach up into the chest. The omentum, which had been contained in the hernia, was mildly edematous and somewhat friable. A prolonged dissection of the tissues was necessary to return all of the hernia contents to the abdomen. Initially, the lesser omentum was opened and the lateral most attachment of the left lobe of the liver was divided to improve retraction. The medial edge of the esophageal hiatus was identified. I attempted to place the omentum on traction but again it proved to be somewhat friable and a number fronds of omentum were individually withdrawn and actually transected using the vessel sealer and set aside for later removal. Once the medial aspect of the dissection had proceeded partially, I moved to the greater curve of the stomach. The short gastric vessels along the proximal body and fundus of the stomach were then divided moving up toward the lateral aspect of the esophageal hiatus. There was obviously some herniation of fibrofatty tissues as part of the hernia sac posterior to the fundus of the stomach and portions of this were also dissected. The medial rubio of the diaphragm was then identified further and further developed. Portions of the hernia sac were freed around the edges of the esophageal hiatus and withdrawn into the abdomen and then transected and removed, and set aside for later removal from the abdomen. There was a very large extension of the hiatal hernia to the left of the midline but likewise a large defect extending to the right of the midline. The anterior aspect of the esophagus was covered by some adherent omental tissues and these were dissected free and also set aside for later removal. Once the hiatus was adequately defined, the stomach was retracted to the right, and the lateral rubio of the diaphragm was further identified posterior to the fundus. The dissection was then carried up into the mediastinum along the greater curve of the stomach freeing the stomach from portions of the overlying fixating hernia sac. The sac was opened but I did not attempt to remove all the remaining portions of the hernia sac. I was able to pass posterior to the distal esophagus and then carry the dissection of the distal esophagus 5-10 cm up into the mediastinum to try to gain adequate length for placement of the stomach entirely within the abdomen. Hemostasis was ensured using the vessel sealer as adhesions were divided. This was a prolonged process of clearing the tissues around the esophageal hiatus and preparing for the repair. I had mobilized the distal esophagus as thoroughly as possible given the situation. This placed the esophagogastric junction just about at the level of the diaphragm. At this point, I performed a crural approximation beginning at the inferior aspect of the separation of the crura and moving superiorly using a #1 nonabsorbable V-Loc suture. There was some tension on the closure but the tissues appeared of adequate strength. I did reduce the intraabdominal pressure to 8-10 mmHg during this portion of the procedure. A single 2-0 Ethibond suture was placed at the anterior aspect of the esophageal hiatus. I did also oversew a small burn of the fundus of the stomach which had occurred while using the Force bipolar during the dissection. This was inverted and oversewn with interrupted simple sutures of 2-0 Vicryl. Once the crural approximation had taken place, I placed several sutures of 2-0 Ethibond to tack the fundus of the stomach to the edges of the esophageal hiatus. This appeared to give an acceptable repair. The stomach appeared viable but I elected to proceed with an upper endoscopy to ensure that the mucosa was viable as well. I, therefore, moved to the head of the table and inserted an upper endoscope through the mouth. It was somewhat awkward working beneath the robot but I was able to advance the scope down the esophagus along the indwelling NG tube. The scope was advanced into the stomach. There was a minimal amount of old brownish fluid within the stomach but no signs of acute bleeding and no signs of mucosal ischemia. I did not attempt to advance the scope into the pylorus, though this was identified. The scope was then slowly withdrawn with removal of the insufflated air. The NG tube was left in place. I then returned to the robotic console. Inspection showed no evidence of any significant bleeding. The stomach had not shown any tendency to retract into the mediastinum after it had been adequately freed. The liver retractor was then uncoiled and removed. The pressure in the abdomen was reduced further. I placed a [id number] suture of 2-0 Ethibond between the anterior wall of the stomach and the abdominal wall fascia in the left upper quadrant to perform a gastropexy of the stomach in this area. As the abdominal pressure reduced, it was possible to tie the suture without tearing through either the abdominal wall or the stomach. I used a 2-[address] a suture across the 12 mm port site internally and these tails of the suture were subsequently fed through the 12 mm port as it was removed to allow us to close this from outside. Prior to removing the trocars, two specimen retrieval pouches were inserted through the left upper quadrant site and the fragments of hiatal hernia sac and omentum were collected and all placed within one of these pouches for removal. The patient was returned to a flat position. The robot was undocked and removed. The abdomen was deflated and the trocars were all withdrawn. The suture at the 12 mm site was tied down. All of the trocar sites were then closed with buried sutures of 4-0 Vicryl and Steri- Strips. The patient tolerated the procedure well without apparent complication. She was awakened in the operating room, extubated and moved to the recovery room in stable condition. Her urine output had been limited to approximately 150 mL during the procedure and I elected to leave her Núñez catheter in place. MERLIN
--- NOTE | 2019-12-27 14:40 | IPN ---
DATE: 11/09/2019 HISTORY OF PRESENT ILLNESS: Patient is now approximately eight hours postop at the time of her visit from a robotic assisted laparoscopic repair of an incarcerated paraesophageal hiatal hernia with obstruction. She did not appear to have any actual infarction at the time of her surgery, though her ER labs and history would suggest that there may have been some ischemia. She looks surprisingly comfortable at the time of my evaluation today. She does have a Núñez in place still, which is putting out increased urine this morning. OBJECTIVE: VITALS: Show that she has been afebrile since surgery, her pulse is in 80s and 90s. Blood pressure is good and her oxygen saturation with 3 liters nasal cannula oxygen is in the low to mid 90s. INTAKE & OUTPUT: Show that yesterday she had perhaps 7 to 8 liters of fluid. She received 4,700 cc in the OR. Her urine output has increased somewhat, but remains low relative to her fluid intake. GENERAL: Patient is lying quietly on the hospital bed. She is alert and oriented. She denies any significant pain at this time. She has had no nausea or vomiting. Her NG tube remains in place and is putting out a small amount of brownish fluid. HEART: Shows a regular rhythm in the 70s with a moderately loud murmur on the left in particular. LUNGS: Clear. I do not hear any crepitance. She has no palpable subcutaneous emphysema. ABDOMEN: Obese. She has her five dressing across the mid abdomen. She does have some bowel sounds present. There is some expected tenderness around the areas of her incisions. LABORATORY STUDIES: In the Recovery Room showed white count 16,000 with hemoglobin 13, hematocrit 39 and platelet count 221,000. Her differential count showed 84% neutrophils, 7% lymphocytes and 8% monocytes. Chemistry profile from the Recovery Room showed sodium 143, potassium 2.7, chloride 105, CO2 31, BUN 33, creatinine 1.2, glucose 130. She is due for repeat lab work this afternoon to reassess these. IMPRESSION & PLAN: Patient is doing very well, only 8 to 12 hours postop from repair of her incarcerated paraesophageal hernia. She remained hypokalemic in the Recovery Room and received several doses of 10 mEq of I.V. potassium chloride. She remains on maintenance I.V., which I will cut back to 100 cc per hour. Her urine output appears to be picking up. I encouraged her to be up out of bed to ambulate. I will continue her NG tube for now as I believe she is likely to have some degree of temporary gastroparesis related to the significant manipulation of her stomach yesterday. Hopefully her NG output will remain low and we will be able to remove her NG tube tomorrow. Once her urine output improves, we can remove her Núñez catheter. MERLIN
--- NOTE | 2019-12-27 14:41 | IPN ---
DATE: 11/10/2019 HISTORY: Patient is now approximately 36 hours postoperative from a robotic assisted repair of an incarcerated hiatal hernia with gastric volvulus and obstruction. She did not appear to have any ongoing ischemia at the procedure. The procedure was somewhat prolonged at approximately 6 hours. She has done very well postoperatively. Her chief complaint is of discomfort from the nasogastric (NG) tube. She denies any significant abdominal pain. She reports that she has not yet been out of bed since the surgery because of her Núñez and NG tube and IV. VITAL SIGNS: Show that she has been afebrile over the past 24 hours. Her pulse is in the 70s and her blood pressure is good. Oxygen saturation with 3 liters of nasal cannula oxygen has been in the low to mid 90s. Intake and output shows that she had 7300 mL total of IV fluid yesterday with 900 mL of output recorded, 800 of which was urine. This morning, she appears to have approximately 500 mL of urine in her Núñez bag. Her NG tube had nothing recorded but when I dropped the cannister this morning from being up over her head a good bit approximately 500 mL drained out immediately with some watery, light pink-brown fluid. PHYSICAL EXAMINATION: Patient is awake and alert and seems quite comfortable. Skin is warm and dry. Heart exam shows a regular rhythm of about 70. The lungs are clear. The abdomen is obese. Her dressings are dry. The abdomen is soft throughout without any undue tenderness. LABORATORY STUDIES: The patient had a medical profile this morning that shows sodium of 145, potassium 3.2, chloride 106, CO2 of 32, BUN of 24, and a creatinine of 0.7. Glucose is 79. IMPRESSION: Patient is doing very well following her surgery. Her potassium has come up to 3.2 from 2.8 yesterday evening. Her BUN and creatinine have fallen toward normal. PLAN: I will discontinue the patients nasogastric (NG) tube today. I will leave her taking just a few ice chips or a few sips of clear liquids. The Núñez catheter will be removed. I am going to stop her oxygen and see how her oxygen saturations are. If these do well, then she can be moved to the floor. I encouraged her to be up out of bed to ambulate at least three times a day. I am going to put her on some Lovenox for deep venous thrombosis (DVT) prophylaxis at this point. MTDD
--- NOTE | 2019-12-27 14:42 | IPN ---
DATE: 11/11/2019 HISTORY: The patient is approximately 2 1/2 days postop from her robotic- assisted laparoscopic reduction and repair of her large paraesophageal hiatal hernia with release of her gastric volvulus. She has done very well postop. She was started on clear liquids this morning which she has tolerated well. She has been able to ambulate. She has been voiding well although her urine output has not been recorded. She reports no difficulty swallowing. She denies any significant abdominal pain and is taking very infrequent medication. VITAL SIGNS: Her temperature has been within normal limits over the last 24 hours. Her pulse is in the 60s and 70s. Blood pressure is good. Intake and output shows that yesterday she had 2350 in and 200 of urine recorded out. PHYSICAL EXAMINATION: GENERAL: The patient is awake, alert and comfortable. SKIN: Warm and dry. HEART: Regular rhythm in the 60s. LUNGS: Clear. ABDOMEN: Obese but soft. Her incisions are clean and dry. LABORATORY STUDIES: CBC showed a white count of 8, hemoglobin 11, hematocrit 33% and a platelet count of 165,000. Differential count is normal. Chemistry profile shows a sodium of 140, potassium 3.3, chloride 106, CO2 31, BUN 17, creatinine 0.6, and a glucose of 82. Total protein is 5.2 with an albumin of 2.3. IMPRESSION: The patient is doing very well following her surgery and is tolerating clear liquids now. PLAN: Her IV will be saline lock. She will be started on some oral pain medications. I will advance her to full liquids and if she tolerates these well today she will be placed on a regular diet tomorrow. She should be ready for discharge home in the next 1-2 days. She is encouraged to be up ambulatory. I will restart some of her usual p.o. medications. MERLIN
--- NOTE | 2019-12-27 14:43 | IPN ---
DATE: 11/12/2019 HISTORY: The patient is postop day #3 1/2 from her hiatal hernia repair and release of her gastric volvulus. She has been tolerating clear liquids and then full liquids yesterday. She was advanced to a regular diet but not until just after lunch today. VITAL SIGNS: She has been afebrile with a pulse in the 60s to 70s and her blood pressure is normal. She has a good room air oxygen saturation. Intake and output shows that yesterday she had 1750 in with 1720 out but she had some bowel movements that were likely not measured yesterday. She does report some small bowel movements. PHYSICAL EXAMINATION: GENERAL: The patient is sitting up on the side of the bed having eaten part of a sandwich and some cake. She reports no difficulty with dysphagia. She has no nausea or vomiting. SKIN: Warm and dry. HEART AND LUNGS: Unremarkable. ABDOMEN: Obese but soft and nontender. LABORATORY DATA: CBC with a white count of 8, hemoglobin of 12, hematocrit of 37, and a platelet count of 206,000. Her chemistry profile shows that her potassium is up to 3.9 and her other electrolytes are normal. BUN and creatinine have normalized and her glucose is 87. IMPRESSION: Patient has made excellent progress. She is now tolerating a regular diet. She is on p.o. medications and is not using any narcotics. PLAN: I discussed with the patient discharge home. She unfortunately cannot get access to a ride home this evening. We will plan on sending her home in the morning as long as everything remains stable between now and then I expect it will. She was counseled regarding avoiding strenuous activity for the next month and her need to follow-up within the next two weeks or so. MERLIN
--- NOTE | 2019-12-27 14:44 | IPN ---
DATE: 11/13/2019 CHIEF COMPLAINT: HISTORY OF PRESENT ILLNESS: Patient had presented with an incarcerated paraesophageal hiatal hernia with gastric volvulus and obstruction. She underwent a robotic-assisted repair of same and is now post-op day approximately 4 & 2. She is now tolerating a regular diet without difficulty. She denies any significant discomfort and has been up ambulating well. PHYSICAL EXAMINATION: VITAL SIGNS: Show that she has been afebrile. Pulse in the 60s to 70s. Blood pressure is good. INTAKE & OUTPUT: Yesterday had 2,000 intake with 3,600 of urine output. She did have a bowel movement recorded yesterday and again today. GENERAL: Patient is sitting up in the bed looking quite comfortable and pleased to be going home. HEART: Unremarkable. LUNGS: Unremarkable. ABDOMEN: Remains obese. Her incisions are clean, but her Steri-Strips are loose. Abdomen shows minimal tenderness on palpation. I applied new Steri-Strips to her incisions. LABORATORY STUDIES: Patient has no new laboratory studies today. IMPRESSION: Patient is doing very well following extensive surgery for her incarcerated paraesophageal hernia. PLAN: She will be discharged home. She can resume light activities, but was advised against any strenuous activity for at least the next month. She can resume all of her usual medications. She can take Tylenol or other [id number] medications as necessary for pain. She was advised to follow-up in my office in approximately two weeks. She should call for any problems including fevers or chills, increasing abdominal pain or signs of wound infection. MERLIN
== END 2019-11-13 11:31 | disposition home or self-care (01) | DRG 220 ==
LOC: M ED 10:46 → M ED INP 17:26 → ENRESERV 23:28 → M PCU 11-09 02:51 → M MSPAV 11-11 16:38
PROVIDERS: ADMIT Surgery; ATTEND Surgery
PROC: 0DQ44ZZ Repair Esophagogastric Junction, Percutaneous Endoscopic Approach (ICD-10-PCS; 2019-11-08)
PROC: 8E0W4CZ Robotic Assisted Procedure of Trunk Region, Percutaneous Endoscopic Approach (ICD-10-PCS; 2019-11-08)
PROC: 0DJ08ZZ Inspection of Upper Intestinal Tract, Via Natural or Artificial Opening Endoscopic (ICD-10-PCS; 2019-11-08)
PROC: 0DNU4ZZ Release Omentum, Percutaneous Endoscopic Approach (ICD-10-PCS; principal; 2019-11-08 16:33)
DX: K44.0 Diaphragmatic hernia with obstruction, without gangrene (principal); K66.0 Peritoneal adhesions (postprocedural) (postinfection); I10 Essential (primary) hypertension; E03.9 Hypothyroidism, unspecified; F17.210 Nicotine dependence, cigarettes, uncomplicated; E87.6 Hypokalemia; Z79.899 Other long term (current) drug therapy

== ENCOUNTER → 2019-12-05 | Outpatient (CLI) | payer OTHER ==
[~2019-12-05] MED LIST: ALBU8.5H PO; CHLO125TA PO; EUTH100T PO; FLUO20CA22 PO; METO1TAB7 PO; OMEP-218 PO; ONDA-83 PO; POTA20TA6 PO; SIMV40TA20 PO; VITA50005 PO
[2019-12-05 13:41] LABS: BLOOD UREA NITROGEN 17 MG/DL (7-18); CALCIUM LEVEL 8.8 MG/DL (8.8-10.2); CARBON DIOXIDE LEVEL 30 MEQ/L (21-32); CHLORIDE LEVEL 103 MEQ/L (98-107); CREATININE FOR GFR 0.88 MG/DL (0.55-1.30); FREE T3 1.9 PG/ML (2.2-4.0); FREE T4 1.34 NG/DL (0.76-1.46); GLOMERULAR FILTRATION RATE > 60.0 (>45); GLUCOSE, FASTING 98 MG/DL (70-100); POTASSIUM SERUM 3.9 MEQ/L (3.5-5.1); SODIUM LEVEL 139 MEQ/L (136-145)
[2019-12-05 16:11] LABS: TOTAL 25(OH) VITAMIN D 28.2 NG/ML (30.0-100.0)
== END ==
LOC: M LAB 12:02
PROVIDERS: ATTEND Family Medicine
DX: E87.6 Hypokalemia (principal); E83.51 Hypocalcemia; E03.8 Other specified hypothyroidism

== ENCOUNTER → 2019-12-27 | Outpatient (CLI) | payer OTHER ==
--- NOTE | 2020-01-01 14:40 | REP ---
TWO-VIEW CHEST HISTORY: Diaphragmatic hernia. TECHNIQUE: Two views of the chest are performed. COMPARISON: 11/11/2019. FINDINGS: There is no acute infiltrate. The previously noted bibasilar pleural and parenchymal opacities predominantly on the left side have resolved. There is some mild fibroatelectatic change remaining in each lung base. Heart is upper limits of normal in size. There is calcification of the thoracic aorta. The mediastinal silhouette appears otherwise unremarkable. There is mild elevation of the right diaphragm medially. There are mild degenerative changes of the spine. IMPRESSION: Resolution of bibasilar pleural and parenchymal opacities. There is mild bibasilar fibroatelectatic change. There are no acute findings. MTDD
== END ==
LOC: M RAD 13:50
PROVIDERS: ATTEND Surgery
DX: K44.9 Diaphragmatic hernia without obstruction or gangrene (principal); J84.10 Pulmonary fibrosis, unspecified; I70.0 Atherosclerosis of aorta

== ENCOUNTER → 2020-05-20 | Outpatient (CLI) | payer OTHER ==
[2020-05-20 11:01] LABS: CHOLESTEROL RISK RATIO 3.226 (<5); FREE T3 0.9 PG/ML (2.2-4.0); FREE T4 0.82 NG/DL (0.76-1.46); THYROID STIMULATING HORMONE 38.8 uIU/ML (0.358-3.740)
[2020-05-20 11:03] LABS: TOTAL 25(OH) VITAMIN D 23.6 NG/ML (30.0-100.0)
== END ==
LOC: M LAB 09:25
PROVIDERS: ATTEND Registered Nurse
DX: E55.9 Vitamin D deficiency, unspecified (principal)

== ENCOUNTER → 2020-08-07 | Outpatient (CLI) | payer OTHER ==
[2020-08-07 13:18] LABS: MAGNESIUM LEVEL 2.1 MG/DL (1.8-2.4); THYROID STIMULATING HORMONE 39.6 uIU/ML (0.358-3.740)
== END ==
LOC: M LAB 11:09
PROVIDERS: ATTEND Registered Nurse
DX: E03.9 Hypothyroidism, unspecified (principal)

== ENCOUNTER → 2020-11-09 | Outpatient (CLI) | payer OTHER ==
[~2020-11-09] MED LIST changes: +ERGO500029 PO; -VITA50005 PO
[2020-11-09 12:18] LABS: HEMATOCRIT 42.3 % (36.0-47.0); HEMOGLOBIN 13.8 g/dl (12.0-15.5); MEAN CORPUSCULAR HEMOGLOBIN 29.9 pg (27.0-33.0); MEAN CORPUSCULAR HGB CONC 32.6 g/dl (32.0-36.5); MEAN CORPUSCULAR VOLUME 91.6 fl (80.0-96.0); PLATELET COUNT, AUTOMATED 275 10^3/uL (150-450); RED BLOOD COUNT 4.62 10^6/uL (4.00-5.40); WHITE BLOOD COUNT 9.8 10^3/uL (4.0-10.0)
[2020-11-09 12:56] LABS: ALBUMIN 3.1 GM/DL (3.2-5.2); BILIRUBIN,TOTAL 0.5 MG/DL (0.2-1.0); CALCIUM LEVEL 9.1 MG/DL (8.8-10.2); CREATININE FOR GFR 1.02 MG/DL (0.55-1.30); FREE T3 1.1 PG/ML (2.2-4.0); FREE T4 1.12 NG/DL (0.76-1.46); GLOMERULAR FILTRATION RATE 58.3 (>45); POTASSIUM SERUM 4.1 MEQ/L (3.5-5.1); THYROID STIMULATING HORMONE 30.4 uIU/ML (0.358-3.740); TOTAL PROTEIN 7.6 GM/DL (6.4-8.2); URIC ACID 7.6 MG/DL (2.6-6.0)
[2020-11-09 13:15] LABS: TOTAL 25(OH) VITAMIN D 24.4 NG/ML (30.0-100.0)
== END ==
LOC: M LAB 11:32
PROVIDERS: ATTEND Registered Nurse
DX: E55.9 Vitamin D deficiency, unspecified (principal); I10 Essential (primary) hypertension; E03.9 Hypothyroidism, unspecified

== ENCOUNTER → 2020-12-28 | Outpatient (CLI) | payer OTHER ==
[2020-12-28 15:21] LABS: ALT/SGPT 58 U/L (12-78); BILIRUBIN,DIRECT 0.2 MG/DL (0.0-0.2); BILIRUBIN,TOTAL 0.6 MG/DL (0.2-1.0); FREE T3 1.1 PG/ML (2.2-4.0); FREE T4 1.75 NG/DL (0.76-1.46); TOTAL PROTEIN 7.6 GM/DL (6.4-8.2); URIC ACID 8.6 MG/DL (2.6-6.0)
[2020-12-28 15:35] LABS: HEPATITIS B SURFACE ANTIGEN NEGATIVE (NEGATIVE)
[2020-12-28 16:02] LABS: HEPATITIS B CORE ANTIBODY IGM NEGATIVE (NEGATIVE)
[2020-12-28 16:04] LABS: HEPATITIS A ANTIBODY IGM NEGATIVE (NEGATIVE)
[2020-12-29 14:30] LABS: BLOOD UREA NITROGEN 21 MG/DL (7-18); CALCIUM LEVEL 8.9 MG/DL (8.8-10.2); CARBON DIOXIDE LEVEL 28 MEQ/L (21-32); CHLORIDE LEVEL 103 MEQ/L (98-107); CHOLESTEROL LEVEL 154 MG/DL (<200); CHOLESTEROL RISK RATIO 3.276 (<5); CREATININE FOR GFR 1.01 MG/DL (0.55-1.30); GLOMERULAR FILTRATION RATE 58.9 (>45); GLUCOSE, FASTING 94 MG/DL (70-100); HDL CHOLESTEROL 47 MG/DL (>40); LDL CHOLESTEROL 89 MG/DL (<100); NON-HDL-C 107 MG/DL; POTASSIUM SERUM 3.5 MEQ/L (3.5-5.1); SODIUM LEVEL 139 MEQ/L (136-145); TRIGLYCERIDES LEVEL 90 MG/DL (<150)
== END ==
LOC: M LAB 12:55
PROVIDERS: ATTEND Registered Nurse
DX: R79.9 Abnormal finding of blood chemistry, unspecified (principal); N18.30 Chronic kidney disease, stage 3 unspecified; E78.2 Mixed hyperlipidemia; E03.9 Hypothyroidism, unspecified; M54.2 Cervicalgia; E55.9 Vitamin D deficiency, unspecified

== ENCOUNTER → 2021-06-16 | Outpatient (CLI) | payer OTHER ==
[~2021-06-16] MED LIST changes: +OMEP-173 PO; -OMEP-218 PO; +POTA-151 PO; -POTA20TA6 PO
[2021-06-16 12:59] LABS: FREE T4 1.97 NG/DL (0.76-1.46); THYROID STIMULATING HORMONE 0.353 uIU/ML (0.358-3.740)
[2021-06-16 15:40] LABS: FREE T3 2.4 PG/ML (2.2-4.0)
== END ==
LOC: M LAB 09:46
PROVIDERS: ATTEND Registered Nurse
DX: E03.8 Other specified hypothyroidism (principal)

== ENCOUNTER → 2021-09-14 | Outpatient (CLI) | payer OTHER ==
[2021-09-14 16:19] LABS: HEMOGLOBIN 11.9 g/dl (12.0-15.5); MEAN CORPUSCULAR HGB CONC 32.2 g/dl (32.0-36.5); MEAN CORPUSCULAR VOLUME 87.1 fl (80.0-96.0); PLATELET COUNT, AUTOMATED 180 10^3/uL (150-450); RED BLOOD COUNT 4.25 10^6/uL (4.00-5.40)
[2021-09-14 16:56] LABS: ALBUMIN 3.2 GM/DL (3.2-5.2); ALT/SGPT 31 U/L (12-78); BILIRUBIN,TOTAL 0.8 MG/DL (0.2-1.0); BLOOD UREA NITROGEN 21 MG/DL (7-18); CALCIUM LEVEL 9.5 MG/DL (8.8-10.2); CARBON DIOXIDE LEVEL 31 MEQ/L (21-32); CHLORIDE LEVEL 104 MEQ/L (98-107); CHOLESTEROL LEVEL 126 MG/DL (<200); CHOLESTEROL RISK RATIO 2.571 (<5); CREATININE FOR GFR 0.71 MG/DL (0.55-1.30); FREE T3 3.5 PG/ML (2.2-4.0); FREE T4 2.51 NG/DL (0.76-1.46); GLOMERULAR FILTRATION RATE > 60.0 (>45); GLUCOSE, FASTING 94 MG/DL (70-100); HDL CHOLESTEROL 49 MG/DL (>40); LDL CHOLESTEROL 62 MG/DL (<100); NON-HDL-C 77 MG/DL; SODIUM LEVEL 142 MEQ/L (136-145); THYROID STIMULATING HORMONE 0.006 uIU/ML (0.358-3.740); TOTAL PROTEIN 8.1 GM/DL (6.4-8.2); TRIGLYCERIDES LEVEL 74 MG/DL (<150)
== END ==
LOC: M LAB 15:47
PROVIDERS: ATTEND Registered Nurse
DX: E03.9 Hypothyroidism, unspecified (principal); R74.01 Elevation of levels of liver transaminase levels; R74.02 Elevation of levels of lactic acid dehydrogenase [LDH]

== ENCOUNTER → 2021-12-29 | Outpatient (CLI) | payer OTHER ==
[2021-12-29 13:22] LABS: FREE T3 3.8 PG/ML (2.2-4.0); FREE T4 2.46 NG/DL (0.76-1.46); POTASSIUM SERUM 3.9 MEQ/L (3.5-5.1); THYROID STIMULATING HORMONE < 0.005 uIU/ML (0.358-3.740)
== END ==
LOC: M LAB 11:57
PROVIDERS: ATTEND Registered Nurse
DX: E87.6 Hypokalemia (principal); E03.9 Hypothyroidism, unspecified

== ENCOUNTER → 2022-04-15 | Outpatient (CLI) | payer OTHER, MEDICARE ==
[2022-04-15 12:14] LABS: HEMATOCRIT 39.5 % (36.0-47.0); HEMOGLOBIN 12.6 g/dl (12.0-15.5); MEAN CORPUSCULAR HEMOGLOBIN 27.8 pg (27.0-33.0); MEAN CORPUSCULAR HGB CONC 31.9 g/dl (32.0-36.5); PLATELET COUNT, AUTOMATED 297 10^3/uL (150-450); RED BLOOD COUNT 4.54 10^6/uL (4.00-5.40); WHITE BLOOD COUNT 8.6 10^3/uL (4.0-10.0)
[2022-04-15 12:38] LABS: MAGNESIUM LEVEL 1.9 MG/DL (1.8-2.4)
[2022-04-15 12:40] LABS: ALBUMIN 3.3 G/DL (3.2-5.2); ALKALINE PHOSPHATASE 103 U/L (46-116); ALT/SGPT 46 U/L (7.0-40); AST/SGOT 70 U/L (<34); BILIRUBIN,TOTAL 0.5 MG/DL (0.3-1.2); BLOOD UREA NITROGEN 14 MG/DL (9-23); CALCIUM LEVEL 8.9 MG/DL (8.3-10.6); CARBON DIOXIDE LEVEL 26 MMOL/L (20-31); CHLORIDE LEVEL 105 MMOL/L (98-107); CREATININE FOR GFR 0.63 MG/DL (0.55-1.30); GLOMERULAR FILTRATION RATE > 60.0 (>45); GLUCOSE, FASTING 86 MG/DL (74-106); POTASSIUM SERUM 4.5 MMOL/L (3.5-5.1); SODIUM LEVEL 137 MMOL/L (136-145); TOTAL PROTEIN 7.5 G/DL (5.7-8.2)
[2022-04-15 12:44] LABS: FREE T3 4.1 PG/ML (2.3-4.2)
== END ==
LOC: M LAB 11:32
PROVIDERS: ATTEND Registered Nurse
DX: R19.7 Diarrhea, unspecified (principal); E03.8 Other specified hypothyroidism

== ENCOUNTER → 2023-04-17 | Outpatient (CLI) | payer MEDICARE, MEDICAID ==
[2023-04-17 10:01] LABS: HEMATOCRIT 44.5 % (36.0-47.0); HEMOGLOBIN 14.5 g/dl (12.0-15.5); MEAN CORPUSCULAR HEMOGLOBIN 28.1 pg (27.0-33.0); MEAN CORPUSCULAR HGB CONC 32.6 g/dl (32.0-36.5); MEAN CORPUSCULAR VOLUME 86.2 fl (80.0-96.0); PLATELET COUNT, AUTOMATED 263 10^3/uL (150-450); RED BLOOD COUNT 5.16 10^6/uL (4.00-5.40); WHITE BLOOD COUNT 7.2 10^3/uL (4.0-10.0)
[2023-04-17 10:27] LABS: URIC ACID 6.9 MG/DL (3.1-7.8)
[2023-04-17 10:30] LABS: ALBUMIN 3.4 G/DL (3.2-5.2); ALKALINE PHOSPHATASE 77 U/L (46-116); ALT/SGPT 21 U/L (7.0-40); AST/SGOT 21 U/L (<34); BILIRUBIN,TOTAL 0.7 MG/DL (0.3-1.2); BLOOD UREA NITROGEN 15 MG/DL (9-23); CALCIUM LEVEL 9.3 MG/DL (8.3-10.6); CARBON DIOXIDE LEVEL 29 MMOL/L (20-31); CHLORIDE LEVEL 107 MMOL/L (98-107); CHOLESTEROL LEVEL 185 MG/DL (<200); CHOLESTEROL RISK RATIO 3.11 (<5); CREATININE FOR GFR 0.75 MG/DL (0.55-1.30); GLOMERULAR FILTRATION RATE > 60.0 (>45); GLUCOSE, FASTING 87 MG/DL (74-106); HDL CHOLESTEROL 59.3 MG/DL (>40); LDL CHOLESTEROL 107.5 MG/DL (<100); MAGNESIUM LEVEL 1.9 MG/DL (1.8-2.4); NON-HDL-C 125.7 MG/DL; POTASSIUM SERUM 4.7 MMOL/L (3.5-5.1); SODIUM LEVEL 140 MMOL/L (136-145); TRIGLYCERIDES LEVEL 91 MG/DL (<150)
[2023-04-17 10:33] LABS: FREE T4 1.77 NG/DL (0.89-1.76)
[2023-04-17 10:34] LABS: THYROID STIMULATING HORMONE 0.008 uIU/ML (0.55-4.78); TOTAL 25(OH) VITAMIN D 37.7 NG/ML (20.0-100.0)
[2023-04-17 10:36] LABS: FREE T3 4.2 PG/ML (2.3-4.2)
[2023-04-17 11:15] LABS: HEMOGLOBIN A1c 5.6 % (4.0-6.0)
== END ==
LOC: M LAB 08:30
PROVIDERS: ATTEND Registered Nurse
DX: E66.9 Obesity, unspecified (principal); E55.9 Vitamin D deficiency, unspecified; I10 Essential (primary) hypertension; K21.9 Gastro-esophageal reflux disease without esophagitis; Z79.899 Other long term (current) drug therapy

== ENCOUNTER → 2023-06-15 | Outpatient (CLI) | payer MEDICARE, MEDICAID ==
[2023-06-15 12:40] LABS: POTASSIUM SERUM 4.5 MMOL/L (3.5-5.1)
[2023-06-15 12:50] LABS: FREE T4 1.75 NG/DL (0.89-1.76)
[2023-06-15 12:51] LABS: THYROID STIMULATING HORMONE 0.028 uIU/ML (0.55-4.78)
[2023-06-15 13:08] LABS: FREE T3 2.5 PG/ML (2.3-4.2)
== END ==
LOC: M LAB 11:32
PROVIDERS: ATTEND Registered Nurse
DX: I10 Essential (primary) hypertension (principal); E03.9 Hypothyroidism, unspecified

== ENCOUNTER → 2023-09-01 | Outpatient (CLI) | payer MEDICARE, MEDICAID ==
[~2023-09-01] MED LIST changes: +FLUO-365 PO; -FLUO20CA22 PO
[2023-09-01 10:20] LABS: FREE T4 1.49 NG/DL (0.89-1.76); THYROID STIMULATING HORMONE 0.502 uIU/ML (0.55-4.78)
[2023-09-01 10:32] LABS: FREE T3 2.2 PG/ML (2.3-4.2)
== END ==
LOC: M LAB 08:30
PROVIDERS: ATTEND Registered Nurse
DX: E03.8 Other specified hypothyroidism (principal)

== ENCOUNTER → 2023-10-31 | Outpatient (CLI) | payer MEDICARE, MEDICAID ==
[2023-10-31 15:07] LABS: FREE T4 1.39 NG/DL (0.89-1.76); THYROID STIMULATING HORMONE 5.082 uIU/ML (0.55-4.78)
[2023-10-31 15:19] LABS: FREE T3 2.1 PG/ML (2.3-4.2)
== END ==
LOC: M LAB 14:09
PROVIDERS: ATTEND Registered Nurse
DX: E03.9 Hypothyroidism, unspecified (principal)

== ENCOUNTER → 2023-12-26 | Outpatient (CLI) | payer MEDICARE, MEDICAID ==
[2023-12-26 13:08] LABS: FREE T4 1.58 NG/DL (0.89-1.76); THYROID STIMULATING HORMONE 3.598 uIU/ML (0.55-4.78)
== END ==
LOC: M LAB 11:40
PROVIDERS: ATTEND Registered Nurse
DX: E03.8 Other specified hypothyroidism (principal); I48.91 Unspecified atrial fibrillation; I48.92 Unspecified atrial flutter; Z01.818 Encounter for other preprocedural examination

== ENCOUNTER → 2023-12-26 | Outpatient (CLI) | payer MEDICARE, MEDICAID ==
[2023-12-26 12:42] LABS: BASO % 0.6 % (0.0-1.0); EOS # 0.2 10^3/uL (0.0-0.5); EOS % 2.5 % (0.0-3.0); HEMATOCRIT 41.9 % (36.0-47.0); HEMOGLOBIN 13.3 g/dl (12.0-15.5); LYMPH # 1.6 10^3/uL (1.5-5.0); LYMPH % 22.8 % (24.0-44.0); MEAN CORPUSCULAR HEMOGLOBIN 28.1 pg (27.0-33.0); MEAN CORPUSCULAR HGB CONC 31.7 g/dl (32.0-36.5); MEAN CORPUSCULAR VOLUME 88.6 fl (80.0-96.0); MONO # 0.5 10^3/uL (0.0-0.8); MONO % 6.8 % (2.0-8.0); NEUTROPHILS # 4.6 10^3/uL (1.5-8.5); NEUTROPHILS % 66.9 % (36.0-66.0); PLATELET COUNT, AUTOMATED 258 10^3/uL (150-450); RED BLOOD COUNT 4.73 10^6/uL (4.00-5.40); WHITE BLOOD COUNT 6.8 10^3/uL (4.0-10.0)
[2023-12-26 13:05] LABS: BLOOD UREA NITROGEN 18 MG/DL (9-23); CALCIUM LEVEL 8.3 MG/DL (8.3-10.6); CARBON DIOXIDE LEVEL 29 MMOL/L (20-31); CHLORIDE LEVEL 104 MMOL/L (98-107); CREATININE FOR GFR 0.85 MG/DL (0.55-1.30); GLOMERULAR FILTRATION RATE > 60.0 (>45); GLUCOSE, FASTING 95 MG/DL (74-106); POTASSIUM SERUM 4.1 MMOL/L (3.5-5.1); SODIUM LEVEL 137 MMOL/L (136-145)
== END ==
LOC: M LAB 11:38
PROVIDERS: ATTEND Internal Medicine Clinical Cardiac Electrophysiology
DX: I48.91 Unspecified atrial fibrillation (principal); I48.92 Unspecified atrial flutter; Z01.818 Encounter for other preprocedural examination